=== PATIENT | male | born 1980 | race Caucasian/White ===

== ENCOUNTER 2022-05-29 08:44 | Emergency (ER) | payer OTHER ==
[2022-05-29] MEDS ORDERED: LORazepam 2 MG/ML VIAL ONE (08:53)
[2022-05-29] MEDS ORDERED: NA CHLORIDE 0.9% 1,000 ML ONE ×3 (08:53→12:21)
[2022-05-29] MEDS ORDERED: DIAZEPAM 10 MG/2 ML INJ SYRINGE ONE (09:16)
[2022-05-29 09:19] LABS: Absolute Lymphocytes (CBC) 1.9 K/uL (0.7-4.9); Hematocrit 43.7 % (39.6-49.0); MCV 91.7 fL (80-100); MPV 7.3 fL (7.6-11.3); RBC Red Blood Cell Count 4.76 M/uL (4.33-5.43)
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
[2022-05-29 09:45] LABS: SARS-CoV-2 Antigen Rapid Res Negative (Negative)
[2022-05-29 09:53] LABS: Protime INR 1.29
[2022-05-29 10:27] LABS: Bicarbonate 21 mmol/L (21-32); Potassium 3.5 mmol/L (3.5-5.1); Sodium Level 129 mmol/L (136-145)
[2022-05-29 10:28] LABS: ALT/SGPT 65 U/L (12-78); AST/SGOT 163 U/L (15-37); Alkaline Phosphatase 81 U/L (45-117); BUN Blood Urea Nitrogen 46 mg/dL (7-18); Bilirubin Direct 0.4 mg/dL (0-0.2); Bilirubin Total 1.4 mg/dL (0.2-1.0); Glomerular Filtration Rate 49 ml/min (=/>90); Glucose Level 110 mg/dL (74-106)
[2022-05-29 10:29] LABS: Albumin 4.2 g/dL (3.4-5.0); Protein, Total 8.5 g/dL (6.4-8.2)
[2022-05-29 10:57] LABS: Urine Blood Trace-intact (Negative); Urine Glucose Negative (Negative); Urine Protein 2+ (Negative); Urine Specific Gravity >=1.030 (1.005-1.030)
[2022-05-29 11:11] LABS: Blood Morphology Comment NOT SEEN (NOT SEEN); Platelet Estimate ADEQ; White Blood Cell Scan OK (OK)
--- NOTE | 2022-05-29 11:31 | RAD REPORT ---
EXAM DESCRIPTION: Herbert Single View05/29/2022 10:53 am CLINICAL HISTORY: Fever COMPARISON: none FINDINGS: Patient is in a poor degree of inspiration. The lungs appear clear of acute infiltrate. The heart is normal size
[2022-05-29 11:48] LABS: Barbiturates NEGATIVE (NEGATIVE); Benzodiazepines NEGATIVE (NEGATIVE); Cocaine NEGATIVE (NEGATIVE); METHAMPHETAM POSITIVE (NEGATIVE); Methadone NEGATIVE (NEGATIVE); Opiates NEGATIVE (NEGATIVE); Phencyclidine NEGATIVE (NEGATIVE); THC Cannibis NEGATIVE (NEGATIVE)
[2022-05-29 15:00] VITALS: BP 115/76; TEMP 98.6; O2SAT 98
--- NOTE | 2022-05-30 16:33 | EKG ---
Test Date: 2022-05-29 Test Time: 08:56:03 Enrollment Services Vice President: LML MEASUREMENT RESULTS: Intervals: Rate: 147 MS: 138 QRSD: 78 QT: 284 QTc: 444 [place]: P: 66 MS: 138 QRS: 132 T: 19 INTERPRETIVE STATEMENTS: Sinus tachycardia Right axis deviation Possible Anterior infarct, age undetermined Abnormal ECG No previous ECG available for comparison Electronically Signed On 05-30-22 16:32:46 QUALITY NURSE by Jae Aceves
== END 2022-05-29 14:37 | disposition short-term general hospital (02) ==
LOC: ER 08:44
DX: R00.0 Tachycardia, unspecified (principal); T43.625A Adverse effect of amphetamines, initial encounter; R50.9 Fever, unspecified; M62.82 Rhabdomyolysis; Z20.822 Contact with and (suspected) exposure to COVID-19
CPT/HCPCS: 36415; 71045; 80048; 80076; 80307; 80320; 80329; 81003; 82550; 83605; 85025; 85610; 85730; 87040; 87804; 87811; 93005; 96361; 96374; 96375; 99285; J3360; J7030